=== PATIENT | female | born 2000 | race Caucasian/White ===

== ENCOUNTER 2022-02-26 18:18 | Emergency (ER) | payer OTHER ==
[~2022-02-26] VITALS: Ht 162.6 cm; Wt 54.4 kg
[2022-02-26] MEDS ORDERED: HALOPERIDOL LACTATE INJ 5 MG/ML VIAL ONE (18:42)
[2022-02-26] MEDS ORDERED: diphenhydrAMINE HCL 50 MG/ML VIAL ONE (18:42)
[2022-02-26] MEDS ORDERED: LORAZEPAM INJ 2 MG/ML VIAL ONE (18:43)
[2022-02-26] MEDS ORDERED: HALOPERIDOL LACTATE INJ 5 MG/ML VIAL IM ONE (19:00)
[2022-02-26] MEDS ORDERED: diphenhydrAMINE HCL 50 MG/ML VIAL IM ONE (19:00)
[2022-02-26] MEDS ORDERED: LORAZEPAM INJ 2 MG/ML VIAL IM ONE (19:00)
--- NOTE | 2022-02-26 19:00 | NUR ---
TO ER BED 15. [employer]IBRA[employer] FOR AGITATION. MOTHER CALLED 911 FOR POSSIBLE OD UNK SUBSTANCE. PT IS AAOX0, RESPONSIVE TO PAIN, DROWSY WHEN AWAKEN. CONNECTED TO MONITOR. NOT IN RESPIRAORY DISTRESS. VITAL SIGNS STABLE. BELONGINGS OBTAINED AND SECURED IN LOCKER. 1:1 SITTER.
[2022-02-26 20:15] LABS: BASOPHILS % (AUTO) 0.8 % (0.0-2.0); EOSINOPHILS % (AUTO) 0.8 % (0.0-6.0); HEMATOCRIT 32 % (33-45); HEMOGLOBIN 10.4 g/dL (11.5-14.8); LYMPHOCYTES # (AUTO) 1.6 K/uL (0.8-4.8); MEAN CORPUSCULAR HGB CONC 33 g/dl (31.0-36.0); MEAN CORPUSCULAR VOLUME 81 fL (82-100); MONOCYTES # (AUTO) 0.3 K/uL (0.1-1.30); MONOCYTES % (AUTO) 5.3 % (2.0-12.0); NEUTROPHILS % (AUTO) 60.1 % (43.0-81.0); PLATELET COUNT (AUTO) 205 K/uL (150-450); RED BLOOD CELL COUNT(AUTO) 3.95 MIL/uL (4.0-5.2)
[2022-02-26 20:58] LABS: ALANINE AMINOTRANSFERASE 22 U/L (12-78); ALBUMIN 3.1 g/dL (3.4-5.0); ALCOHOL, BLOOD < 3 mg/dL (0-0); ALKALINE PHOSPHATASE 64 U/L (46-116); ASPARTATE AMINOTRANSFERASE 21 U/L (15-37); BILIRUBIN,DIRECT 0.1 mg/dL (0.0-0.2); BILIRUBIN,TOTAL 0.3 mg/dL (0.2-1.0); CALCIUM, SERUM 8.3 mg/dL (8.5-10.1); CARBON DIOXIDE 34 mmol/L (21-32); CHLORIDE 102 mmol/L (98-107); GLUCOSE 94 mg/dL (74-106); POTASSIUM 3.1 mmol/L (3.5-5.1); SODIUM SERUM 140 mmol/L (136-145); TOTAL PROTEIN, SERUM 6.3 g/dL (6.4-8.2); UREA NITROGEN, BLOOD 8 mg/dL (7-18)
[2022-02-26 21:09] LABS: ACETAMINOPHEN < 10 ug/ml (10-30)
--- NOTE | 2022-02-26 21:49 | NUR ---
URINE SAMPLE COLLECTED AND SENT TO LAB
--- NOTE | 2022-02-26 21:49 | NUR ---
COVID ANTIGEN SWAB COLLECTED AND SENT TO LAB
[2022-02-26 22:57] LABS: BILIRUBIN,URINE NEGATIVE (NEGATIVE); COLOR,URINE YELLOW (YELLOW); LEUKOCYTE ESTERASE ,URINE NEGATIVE (NEGATIVE); NITRITE, URINE NEGATIVE (NEGATIVE); PROTEIN,URINE NEGATIVE (NEGATIVE); UGLUCOSE NEGATIVE (NEGATIVE); UROBILINOGEN,URINE 0.2 EU/dL (0.2)
--- NOTE | 2022-02-27 05:55 | NUR ---
zita Ross called for psych eval.
--- NOTE | 2022-02-27 08:00 | NUR ---
PT IN BED ASLEEP, EASILY AROUSABLE, BREATHING EVEN AND NON LABORED
--- NOTE | 2022-02-27 08:32 | NUR ---
CALLED CONCETTA, POLISHER AND SANDER, AND WAS NOTIFIED OF PT STATUS. CONCETTA STATED THAT THE PT WILL BE EVALUATED BY HER AT 1100.
--- NOTE | 2022-02-27 12:02 | NUR ---
LUNCH TRAY PROVIDED, TOLERATED WELL
--- NOTE | 2022-02-27 12:04 | NUR ---
CLINICIAN KYAW WILL BE HERE AT 1300
--- NOTE | 2022-02-27 13:25 | NUR ---
[employer]ER AT BEDSIDE FOR EVAL.
--- NOTE | 2022-02-27 15:31 | NUR ---
Patient discharged to home in stable condition. Written and verbal after care instructions given. Patient verbalizes understanding of instruction.
[2022-02-27 15:32] VITALS: BP 108/61
== END 2022-02-27 15:32 | disposition home or self-care (01) ==
LOC: ER 18:40
DX: F14.159 Cocaine abuse with cocaine-induced psychotic disorder, unspecified (principal); Z78.1 Physical restraint status; F19.10 Other psychoactive substance abuse, uncomplicated; Z20.822 Contact with and (suspected) exposure to COVID-19
CPT/HCPCS: 36415; 80048; 80076; 80143; 80307; 80320; 81003; 85025; 87426; 96372 ×2; 99285; C9803; J1200; J1630; J2060; G0480